=== PATIENT | female | born 1960 | race Asian ===

== ENCOUNTER 2025-08-28 06:46 | Day surgery (SDC) | payer MEDICAID ==
[~2025-08-28] VITALS: Ht 154.9 cm; Wt 65.9 kg
[~2025-08-28 06:46] MED LIST: SODIUM CHLORIDE 0.9% 1,000 ML ONE
[2025-08-28] MEDS: SODIUM CHLORIDE 0.9% 1,000 ML IV ONE (08:03)
[2025-08-28] MEDS ORDERED: MIDAZOLAM HCL 2 MG/2 ML VIAL ONE (08:14)
[2025-08-28] MEDS ORDERED: FentaNYL CITRATE PF 100 MCG/2 ML VIAL ONE (08:14)
[2025-08-28] MEDS ORDERED: LISI-892 PO (08:18)
[2025-08-28] MEDS ORDERED: PIOG30TA10 PO (08:18)
[2025-08-28] MEDS ORDERED: LETR2.5 PO (08:18)
[2025-08-28] MEDS ORDERED: ATOR20TA PO (08:18)
[2025-08-28] MEDS ORDERED: EMPA25TA3 PO (08:18)
[2025-08-28] MEDS ORDERED: METF-1211 PO (08:18)
[2025-08-28 09:26] LABS: GLUCOMETER DEV NAME(LOC) SDS.; GLUCOSE,POINT OF CARE 141 MG/DL (70-110)
[2025-08-28 09:49] VITALS: PULSE 77; RESP 21; O2SAT 99
[2025-08-28] MEDS ORDERED: ALBUTEROL SULFATE 2.5 MG/0.5 ML NEB SOLUTION NEB ONE (12:00)
[2025-08-28] MEDS ORDERED: LIDOCAINE 4% 50 ML SOLUTION ONE (12:00)
[2025-08-28] MEDS ORDERED: LIDOCAINE 2% 11 ML JELLY ONE (12:00)
[2025-08-28] MEDS ORDERED: BENZOCAINE 20% 50 MCG/SPRAY 57 GM ONE (12:00)
== END 2025-08-28 13:50 | disposition home or self-care (01) ==
LOC: SURGERY 06:46
PROVIDERS: ATTEND Internal Medicine Critical Care Medicine
DX: R05.3 Chronic cough (principal); R06.2 Wheezing; R49.0 Dysphonia; R04.2 Hemoptysis; R91.8 Other nonspecific abnormal finding of lung field; J38.4 Edema of larynx; B37.0 Candidal stomatitis; I10 Essential (primary) hypertension; E11.9 Type 2 diabetes mellitus without complications; E78.00 Pure hypercholesterolemia, unspecified; Z79.84 Long term (current) use of oral hypoglycemic drugs; Z79.899 Other long term (current) drug therapy; Z90.11 Acquired absence of right breast and nipple; Z90.710 Acquired absence of both cervix and uterus; Z98.890 Other specified postprocedural states
CPT/HCPCS: 31623; 82962; 87206; 87101; 87220; 87070; 88108; 31624; 71045; 87015; J3010; J2250; J2919; J7030; J7613; Z7610